=== PATIENT | female | born 2000 | race African-American/Black ===

== ENCOUNTER 2024-09-07 11:17 | Emergency (ER) | payer SELFPAY ==
[2024-09-07 11:30] VITALS: BP 150/84
[2024-09-07] MEDS: TORADOL 30 MG IM (12:18)
--- NOTE | 2024-09-07 13:41 | ED.GENMED ---
History of Present Illness
General
Chief Complaint: Fall
Source: patient
Exam Limitations: none
Time Seen by Provider: 09/07/24 11:46
Nursing documentation reviewed up to this point in time: agreed with
History of Present Illness
History of Present Illness:
24-year-old female presenting to the emergency department after twisting her ankle when she slid down a hill at work prior to arrival. Ongoing discomfort to the ankle mainly to the lateral aspect. Denies additional injuries or concerns no numbness
or weakness.
Review of Systems
Review of Systems
Allergies reviewed?: Yes
All Other Systems: ROS reviewed and negative except as documented in HPI and ROS
Phy Exam
Physical Exam
Physical Exam:
GENERAL: Alert , in no apparent distress
EYE: pupils equal and reactive
NECK: Supple, no significant adenopathy.
ENT: o/p clr, mmm.
CARDIAC: Regular rate and rhythm .
LUNGS: Clear breath sounds bilaterally, no acute respiratory distress, no wheezes/rales/rhonchi
ABDOMEN: Soft, without focal tenderness, no r/g, no cvat
NEUROLOGICAL: Alert and oriented, no focal neuro deficits
SKIN: Warm and dry, skin intact.
MUSCULOSKELETAL: Mild swelling and tenderness palpation to the lateral malleolus. Increased discomfort with movement of the ankle. No tenderness throughout the remainder of the foot or crooks , well perfused.
PSYCH: Normal and appropriate interaction.
Course
Orders/Labs/Results
Orders:
Orders
09/07/24 11:33
Ankle, Right 3 view CR [CR Ankle - Right Min 3 Views *] Urgent
Comment:
Reason For Exam: twisted right ankle + swelling and pain
09/07/24 12:05
Ketorolac [Toradol] 30 mg IM NOW STA
Vital Signs
Initial and Last Documented VS:
Initial Vital Signs
Temp Pulse Resp BP Pulse Ox
98.3 F 56 16 150/84 98
09/07/24 11:30 09/07/24 11:30 09/07/24 11:30 09/07/24 11:30 09/07/24 11:30
Last Documented Vital Signs
Temp Pulse Resp BP Pulse Ox
98.3 F 56 16 150/84 98
09/07/24 11:30 09/07/24 11:30 09/07/24 11:30 09/07/24 11:30 09/07/24 11:30
Procedures
Splinting/Sling Placement
Right Ankle:
Procedure completed by: Myself
Pre-splint extermity exam: neurovascular intact
Type of splint: posterior short leg
Splint material: fiberglass
Splint checked by provider?: Yes
Normal distal neurovascular exam?: Yes
MDM/Problems Addressed
MDM/Problems Addressed:
24-year-old female presenting to the emergency department today with concerns of right-sided ankle discomfort after twisting her ankle prior to arrival. Patient found of a distal fibular fracture. Neurovascular intact. Patient placed in a bulky
Kline splint and will follow-up closely with Ortho. Return precautions given.
*Critical Care Note
Total Time (30-74mins, 75-104mins- exclusive of procedures): Not Applicable
ED Attending Note
-
Portions of this chart may have been created with voice recognition software.� Occasional wrong word or��sound alike� substitutions may have occurred due to the inherent limitations of voice recognition software.
Discharge Plan
Departure
Patient Disposition: Home (Routine Discharge)
Date of Disposition: 09/07/24
Time of Disposition: 13:44
Patient with high blood pressure during this ER visit?: No
Condition: Good
Covid-19: Not Applicable
Discharge Problem:
Fracture of distal end of fibula
Instructions: Ankle Fracture ED
Referrals:
Lam Womack MD [Active] - Follow up in 5-7 days
UNKNOWN - PT DOES,NOT KNOW [Family Provider] -
Stand Alone Forms: Return to Work
Activity Restrictions/Additional Instructions:
You came to the emergency department today with concerns of ankle discomfort. You are found have a distal fibular fracture. Please rest ice and elevate until orthopedic follow-up. Return for any worsening, new or concerning symptoms.
Interventions
Interventions:
*Risk Screen - Suicide Last Done: 09/07/24 11:30
*Neglect/Abuse Screening Last Done: 09/07/24 11:30
ED-Musculoskeletal Assessment Last Done: 09/07/24 11:45
ED- Neurological Assessment Last Done: 09/07/24 11:45
ED-Skin Assessment Last Done: 09/07/24 11:45
Discharge Date and Time
Print Language: UKRAINIAN
== END 2024-09-07 14:30 | disposition home or self-care (01) ==
LOC: EMR 11:17
PROVIDERS: EMERGENCY PHYSICIAN Emergency Medicine
DX: S82.831A Other fracture of upper and lower end of right fibula, initial encounter for closed fracture (principal); W01.0XXA Fall on same level from slipping, tripping and stumbling without subsequent striking against object, initial encounter
CPT/HCPCS: 99284; 29515; 96372; 73610